=== PATIENT | male | born 1940 | race African-American/Black ===

== ENCOUNTER 2019-01-09 12:12 | Observation (INO) | payer OTHER ==
[2019-01-09 12:55] VITALS: BMI 22.4
--- NOTE | 2019-01-09 13:11 | PDOC ---
History of Present Illness - General Chief Complaint: Syncope/Near Syncope Stated Complaint: NEAR SYNCOPE Time Seen by Provider: 01/09/19 13:10 History Source: Patient Exam Limitations: No Limitations - History of Present Illness Initial Comments: 78 yo M w a pmh of IDDM, HTN, HCL, NSTEMI presents to the ER after a syncopal/ near-syncopal episode earlier today while he was driving to the supermarket. The patient states that he woke up this morning and was feeling fine but then he was driving to the supermarket and felt extremely lightheaded like he was going to pass out. He reports that before he felt lightheaded he experienced mild blurry vision and some shortness of breath. He also felt like his heart was racing but denies palpitations, nausea, vomiting, diaphoresis, recent fevers , chills, or chest pain. He also denies having any head or neck pain. PCP: Anusha Bosch Statistician Theoretical: Dr. Pro at [facility] PSH: None reported Social Hx: recreational alcohol usage. Denies current smoking or other substance usage. Allergies: NKA, NKDA Past History - Past Medical History Allergies/Adverse Reactions: Allergies Allergy/AdvReac Type Severity Reaction Status Date / Time No Known Allergies Allergy Verified 01/09/19 12:50 COPD: No Diabetes: Yes HTN: Yes - Immunization History Immunization Up to Date: Yes - Suicide/Smoking/Psychosocial Hx Smoking History: Never smoked Hx Alcohol Use: No Drug/Substance Use Hx: No Review of Systems - Review of Systems Able to Perform ROS?: Yes Constitutional: Yes: Malaise, Weakness. No: Chills, Diaphoresis, Fever HEENTM: Yes: Blurred Vision, Recent change in vision Respiratory: Yes: Shortness of Breath Cardiac (ROS): Yes: Syncope. No: Chest Pain, Palpitations ABD/GI: No: Constipated, Diarrhea, Nausea, Vomiting : No: Burning, Dysuria, Discharge Musculoskeletal: No: Back Pain, Joint Pain Integumentary: No: Bruising, Change in Color, Dryness Neurological: Yes: Weakness, Dizziness. No: Headache, Numbness, Paresthesia Psychiatric: No: Anxiety, Depression Endocrine: No: Excessive Sweating, Flushing Hematologic/Lymphatic: No: Anemia, Blood Clots *Physical Exam - Vital Signs Last Vital Signs Temp Pulse Resp BP Pulse Ox 97.9 F 64 18 134/72 100 01/09/19 12:30 01/09/19 12:30 01/09/19 12:30 01/09/19 12:30 01/09/19 12:30 - Physical Exam General Appearance: Yes: Nourished, Appropriately Dressed. No: Apparent Distress HEENT: positive: EOMI, LEIGHA, Normal ENT Inspection, Normal Voice, Symmetrical Neck: positive: Supple Respiratory/Chest: positive: Lungs Clear, Normal Breath Sounds. negative: Respiratory Distress, Crackles, Rales, Rhonchi, Stridor, Wheezing Cardiovascular: positive: Regular Rhythm, Regular Rate, S1, S2 Vascular Pulses: Dorsalis-Pedis (R): 2+, Doralis-Pedis (L): 2+ Gastrointestinal/Abdominal: positive: Flat, Soft. negative: Tender Rectal Exam: positive: deferred Lymphatic: negative: Adenopathy Musculoskeletal: positive: Normal Inspection. negative: CVA Tenderness Extremity: positive: Normal Capillary Refill, Normal Inspection, Normal Range of Motion Integumentary: positive: Normal Color, Dry, Warm Neurologic: positive: digital media planner II-XII NML intact, Fully Oriented, Alert, Normal Mood/ Affect, Normal Response, Motor Strength 5/5 ED Treatment Course - LABORATORY CBC & Chemistry Diagram: 01/09/19 13:37 01/09/19 13:37 - RADIOLOGY Radiograph Interpretation: CXR: Chest: History of TIA and CVA. 2 views of the chest have been submitted. There are no prior studies for comparison. Imaging reveals clear well aerated lungs, sharp angles, normal mediastinum and intact soft tissues. There are degenerative changes with some wedging. An acute process is not seen. Impression : No acute chest pathology. Head CT: History of rule out stroke CT scan of the brain without intravenous contrast. There is mild volume loss and ventricular dilatation. No mass lesion, acute infarct or intracranial hemorrhage are identified. There is no shift of the midline structures Visualized paranasal sinuses and mastoid air cells are well aerated. Calcification of the cavernous carotid arteries are present. The calvarium is intact IMPRESSION: Mild volume loss and ventricular dilatation without evidence of acute intracranial pathology. Correlate clinically for further evaluation and follow-up. Medical Decision Making - Medical Decision Making 78 yo M w a pmh of IDDM, HTN, HCL, NSTEMI presents to the ER after a syncopal/ near-syncopal episode earlier today while he was driving to the [employer]. The patient states that he woke up this morning and was feeling fine but then he was driving to the [employer] and felt extremely lightheaded like he was going to pass out. He reports that before he felt lightheaded he experienced mild blurry vision and some shortness of breath. He also felt like his heart was racing but denies palpitations, nausea, vomiting, diaphoresis, recent fevers , chills, or chest pain. He also denies having any head or neck pain. VS: WNL DDx IBNLT: ACS/DE, arrhythmia, syncope/near-syncope, electrolyte/metabolic disturbance, pneumothorax, PNA, CVA/TIA, brain bleed. Plan: Labs, Urine, EKG, CXR, Head CT, Likely admit to tele Obs for syncope EKG shows occasional PVC's it is possible the patient experienced a transient arrhythmia CXR and Head CT unremarkable Labs show an elevated BUN suggestive of possible dehydration - Will give patient a 2nd liter of fluid and then admit to Tele obs for syncopal observation and cardio workup - Patient microblogged for admission to hospitalist - Patient accepted for admission. *DC/Admit/Observation/Transfer Diagnosis at time of Disposition: Syncope, Light-headed feeling, Blurry vision - Discharge Dispostion Condition at time of disposition: Stable Decision to Admit order: Yes - Referrals - Patient Instructions - Post Discharge Activity
[2019-01-09] MEDS ORDERED: SODIUM CHLORIDE 1,000 ML IV STA (13:12)
[2019-01-09 14:07] LABS: EOS % 0.7 % (0-4.5); HEMATOCRIT 38.7 % (35.4-49); HEMOGLOBIN 12.8 GM/dL (11.7-16.9); LYMPH % 25.7 % (8-40); MCH 29.2 pg (25.7-33.7); MEAN CELL VOLUME 88.5 fl (80-96); MEAN PLT VOLUME 8.5 fl (7.5-11.1); MONO % 10.7 % (3.8-10.2); NEUT % 61.9 % (42.8-82.8); PLATELET COUNT 159 K/MM3 (134-434); RBC 4.37 M/mm3 (4.00-5.60); RDW 13.6 % (11.9-15.9); WHITE BLOOD COUNT 4.4 K/mm3 (4.0-10.0)
[2019-01-09 14:22] LABS: INR 1.07 (0.83-1.09); PROTHROMBIN TIME (PATIENT) 12.6 SEC (9.7-13.0)
[2019-01-09 14:35] LABS: ALBUMIN 4.2 g/dl (3.4-5.0); ALK PHOS 45 U/L (45-117); ANION GAP 7 MMOL/L (8-16); BILIRUBIN,TOTAL 0.6 mg/dL (0.2-1); BLOOD UREA NITROGEN 25 mg/dL (7-18); CALCIUM 9.3 mg/dL (8.5-10.1); CHLORIDE 101 mmol/L (98-107); CO2 24 mmol/L (21-32); CREATININE 1.3 mg/dL (0.55-1.3); GLUCOSE,RANDOM 284 mg/dL (74-106); POTASSIUM 4.8 mmol/L (3.5-5.1); SGOT/AST 25 U/L (15-37); SGPT/ALT 31 U/L (13-61); SODIUM 132 mmol/L (136-145); TOT PROT 7.9 g/dl (6.4-8.2)
[2019-01-09 14:38] LABS: MAGNESIUM 1.9 mg/dL (1.8-2.4); N-TERMINAL BNP 265.6 pg/ml (5-450)
[2019-01-09 14:40] LABS: URINE APPEARANCE Clear; URINE BILIRUBIN Negative (NEGATIVE); URINE COLOR Yellow; URINE GLUCOSE (UA) 2+ (NEGATIVE); URINE KETONE Trace (NEGATIVE); URINE LEUK ESTERASE Negative (NEGATIVE); URINE NITRITE Negative (NEGATIVE); URINE PROTEIN Negative (NEGATIVE); URINE UROBILINOGEN 0.2 mg/dL (0.2-1.0)
--- NOTE | 2019-01-09 16:04 | PDOC ---
Documentation entered by Marizol Goodson SCRIBE, acting as scribe for Shadi Sahni MD. Shadi Sahni MD: This documentation has been prepared by the Hamzah harris Sammi, SCRIBE, under my direction and personally reviewed by me in its entirety. I confirm that the documentation accurately reflects all work, treatment, procedures, and medical decision making performed by me. Attending Attestation - Resident Resident Name: Mauricio Buchanan - ED Attending Attestation I have performed the following: I have examined & evaluated the patient, The case was reviewed & discussed with the resident, I agree w/resident's findings & plan - HPI HPI: 01/09/19 15:33 78-year-old male with history of hypertension, high cholesterol, and some dependent diabetes, and NSTEMI presents with near syncopal episode while driving. No chest pain. - Physicial Exam PE: 01/09/19 15:34 Vital signs normal here, asymptomatic Heart is regular with occasional premature beats consistent with PVC on monitor Lungs clear Neurologically nonfocal - Medical Decision Making 01/09/19 15:34 78-year-old male with multiple ACS risk factors including CAD/and STEMI resents with near syncopal episode, PVCs on monitor and on EKG, most concerning for ischemic episode plus or minus arrhythmia. Labs, monitoring EKG, chest x-ray, CT head Telemetry observation Heart Score/ECG Review #1 ECG reviewed & interpreted by me at: 13:39 General ECG Interpretation: Sinus Rhythm (with PVCs noted), Normal Rate (63), Normal Intervals (qtc 421), No acute ischemic changes Compared to previous ECG there are: Previous ECG unavail
[2019-01-09] MEDS ORDERED: SODIUM CHLORIDE 0.9% 500 ML INFUS.BAG IV ONE (16:49)
--- NOTE | 2019-01-09 17:20 | HP ---
CHIEF COMPLAINT: "i almost fainted" PCP: Anusha Bosch Welfare Adviser: Dr. Pro at [facility] HISTORY OF PRESENT ILLNESS: This is a 78 yo M with PMH of IDDM, HTN, HLD, NSTEMI, CHF, who presents s/p near -syncopal episode earlier today. Patient was well this morning until he suddenly became very lightheaded with mildly blurry vision, palpitations and slight sob. Episode lasted about 20 min and symptoms subsided spontaneously by the time he arrived to ED. He currently feels well at baseline. this has not happened before. He reports decreased h20 intake over the past few days. he denies position change during the episode, cp, n/v, diaphoresis or flushing. He denies f/c, h/a, tinnitus, focal weakness or numbness. In ed labs were consistent with possible mild dehydration, head ct and cxr were unremarkable for acute pathology and EKG was unremarkable for acs. last tte was 3-4 yrs ago with reduced EF and last a1c was 7.8 6w ago. patient state his bgm was 250 this morning and that he skipped a meal. ER course was notable for: (1)labs (2)cxr, head ct (3)1 L NS IV Recent Travel: denies PAST MEDICAL HISTORY: as above PAST SURGICAL HISTORY:as above Social History: Smoking:Denies Alcohol: 5-6 drinks/week Drugs: Denies Family History: htn Allergies No Known Allergies Allergy (Verified 01/09/19 12:50) HOME MEDICATIONS: REVIEW OF SYSTEMS CONSTITUTIONAL: Absent: fever, chills HEENT: Absent: rhinorrhea, nasal congestion, throat pain CARDIOVASCULAR: Absent: chest pain, irregular heart rate, peripheral edema RESPIRATORY: Absent: cough, dyspnea with exertion, orthopnea GASTROINTESTINAL: Absent: abdominal pain, abdominal distension, nausea, vomiting, diarrhea, constipation, melena, hematochezia GENITOURINARY: Absent: dysuria MUSCULOSKELETAL: Absent: back pain, neck pain SKIN: Absent: rash, itching, pallor HEMATOLOGIC/IMMUNOLOGIC: Absent: easy bleeding, easy bruising ENDOCRINE: Absent: unexplained weight gain, unexplained weight loss NEUROLOGIC: Absent: headache, focal weakness or paresthesias PSYCHIATRIC: Absent: anxiety, depression PHYSICAL EXAMINATION Vital Signs - 24 hr 01/09/19 01/09/19 12:30 16:30 Temperature 97.9 F 98.2 F Pulse Rate 64 Pulse Rate [ 57 L Left Apical] Respiratory 18 18 Rate Blood Pressure 134/72 Blood Pressure 145/68 [Left Arm] O2 Sat by Pulse 100 100 Oximetry (%) GENERAL: Awake, alert, and fully oriented, in no acute distress. HEAD: Normal with no signs of trauma. EYES: Pupils equal, round and reactive to light, extraocular movements intact, sclera anicteric, conjunctiva clear. EARS, NOSE, THROAT: Moist mucous membranes. NECK: supple without JVD LUNGS: Breath sounds equal, clear to auscultation bilaterally HEART: Regular rate and rhythm, normal S1 and S2 ABDOMEN: Soft, nontender, not distended, normoactive bowel sounds, no guarding, no rebound, no masses. MUSCULOSKELETAL: No CVA tenderness. UPPER EXTREMITIES: 2+ pulses, warm, well-perfused. No peripheral edema. LOWER EXTREMITIES: 2+ pulses, warm, well-perfused. No calf tenderness. No peripheral edema. NEUROLOGICAL: Cranial nerves II-XII intact. Normal speech. muslce strenght 5/5 in all extremities, sensation intact, 1+ patellar and bicep reflexes b/l PSYCHIATRIC: Cooperative. Good eye contact. Appropriate mood and affect. SKIN: Warm, dry Laboratory Results - last 24 hr 01/09/19 01/09/19 01/09/19 13:37 13:37 13:37 WBC 4.4 RBC 4.37 Hgb 12.8 Hct 38.7 MCV 88.5 MCH 29.2 MCHC 33.0 RDW 13.6 Plt Count 159 MPV 8.5 Absolute Neuts (auto) 2.7 Neutrophils % 61.9 Lymphocytes % 25.7 Monocytes % 10.7 H Eosinophils % 0.7 Basophils % 1.0 Nucleated RBC % 0 PT with INR 12.60 INR 1.07 PTT (Actin FS) Sodium 132 L Potassium 4.8 Chloride 101 Carbon Dioxide 24 Anion Gap 7 L BUN 25 H Creatinine 1.3 Creat Clearance w eGFR 53.67 Random Glucose 284 H Calcium 9.3 Magnesium Total Bilirubin 0.6 AST 25 ALT 31 Alkaline Phosphatase 45 Creatine Kinase 154 Creatine Kinase Index 1.2 CK-MB (CK-2) 2.0 Troponin I < 0.02 B-Natriuretic Peptide Total Protein 7.9 Albumin 4.2 Urine Color Urine Appearance Urine pH Ur Specific [place] Urine Protein Urine Glucose (UA) Urine Ketones Urine Blood Urine Nitrite Urine Bilirubin Urine Urobilinogen Ur Leukocyte Esterase Blood Type Antibody Screen 01/09/19 01/09/19 01/09/19 13:37 13:37 13:37 WBC RBC Hgb Hct MCV MCH MCHC RDW Plt Count MPV Absolute Neuts (auto) Neutrophils % Lymphocytes % Monocytes % Eosinophils % Basophils % Nucleated RBC % PT with INR INR PTT (Actin FS) 32.0 Sodium Potassium Chloride Carbon Dioxide Anion Gap BUN Creatinine Creat Clearance w eGFR Random Glucose Calcium Magnesium 1.9 Total Bilirubin AST ALT Alkaline Phosphatase Creatine Kinase Creatine Kinase Index CK-MB (CK-2) Troponin I B-Natriuretic Peptide 265.6 Total Protein Albumin Urine Color Urine Appearance Urine pH Ur Specific [place] Urine Protein Urine Glucose (UA) Urine Ketones Urine Blood Urine Nitrite Urine Bilirubin Urine Urobilinogen Ur Leukocyte Esterase Blood Type AB POSITIVE Antibody Screen Negative 01/09/19 13:40 WBC RBC Hgb Hct MCV MCH MCHC RDW Plt Count MPV Absolute Neuts (auto) Neutrophils % Lymphocytes % Monocytes % Eosinophils % Basophils % Nucleated RBC % PT with INR INR PTT (Actin FS) Sodium Potassium Chloride Carbon Dioxide Anion Gap BUN Creatinine Creat Clearance w eGFR Random Glucose Calcium Magnesium Total Bilirubin AST ALT Alkaline Phosphatase Creatine Kinase Creatine Kinase Index CK-MB (CK-2) Troponin I B-Natriuretic Peptide Total Protein Albumin Urine Color Yellow Urine Appearance Clear Urine pH 7.0 Ur Specific [place] 1.010 Urine Protein Negative Urine Glucose (UA) 2+ H Urine Ketones Trace Urine Blood Trace-intact Urine Nitrite Negative Urine Bilirubin Negative Urine Urobilinogen 0.2 Ur Leukocyte Esterase Negative Blood Type Antibody Screen ASSESSMENT/PLAN: This is a 78 yo M with PMH of IDDM, HTN, HLD, NSTEMI, CHF, who presents s/p near -syncopal episode earlier today. Near syncope; r/o arrythmia, sic sinus, carotid plaque, hyperthyroidism IDDM HTN HLD CAD CHF -cardiac monitoring for arrythmia -carotid doppler -tte -f/u tfts -iss bgm achs, levemir 8 u am Please call patients pharmacy [facility] [phone] tomorrow at 10 am to obtain med list Problem List - Problem (1) HTN (hypertension) Code(s): I10 - ESSENTIAL (PRIMARY) HYPERTENSION (2) HLD (hyperlipidemia) Code(s): E78.5 - HYPERLIPIDEMIA, UNSPECIFIED (3) Diabetes mellitus Code(s): E11.9 - TYPE 2 DIABETES MELLITUS WITHOUT COMPLICATIONS (4) Blurry vision Code(s): H53.8 - OTHER VISUAL DISTURBANCES (5) Light-headed feeling Code(s): R42 - DIZZINESS AND GIDDINESS (6) Syncope Code(s): R55 - SYNCOPE AND COLLAPSE Visit type - Emergency Visit Emergency Visit: Yes ED Registration Date: 01/09/19 Care time: The patient presented to the Emergency Department on the above date and was hospitalized for further evaluation of their emergent condition. - New Patient This patient is new to me today: Yes Date on this admission: 01/09/19 - Critical Care Critical Care patient: No
--- NOTE | 2019-01-09 18:08 | PN ---
Teaching Attending Note Name of Resident: Yady Oconnor ATTENDING PHYSICIAN STATEMENT I saw and evaluated the patient. I reviewed the resident's note and discussed the case with the resident. I agree with the resident's findings and plan as documented. SUBJECTIVE: CC: near syncope HPI: 78 y/o man with h/o IDDM, HTN, heart failure, [place] ( per notes) , who presented with an episode of light headedness while driving. while driving to [employer], her felt extremely light headed ( No vertigo), with SOB , but no palpitations or CP. he managed to reach his destination and walk to [employer] ( unsteady gait), and then EMS were called. he had an episode like that ( less severe) 12 years ago, when he was transferred to [facility] where he was diagnosed with heart failure. he workman snot know much details and does not know his mediations . He denies being on diuretics, and denies poor po intake. his sugar was > 200 this am , and he injected his 8 units of lantus. he skipped breakfast . he denies any fever , chills, SOB, CP. he reports Neg stress test 5 years ago. no previous cath. his card is in [facility]. in the ER , he was given 2 L of fluids, EKG showed PVcs, and head CT/cxray were unremarkable. OBJECTIVE: NAD , Awake , alert , and cooperative. HEENT: no facial droop. EOMI. MMM. no JVD. CV: RRR, robert in 50s, no MRG . no JVD Lungs: CTAB EXt: no edema, no erythema, no signs of fungal infection in feet Abd: soft, NT, ND, NL BS. Neuro: EOMI, no facial droop, round pupils, reactive to light . tongue and uvula at mid line Strength 5/5 in upper and lower extremities , proximally and distally. sensation to light touch nl. reflexes 2+ knee jerk b/l. 1+ biceps b/l. nl nose to finger EKG: sinus rhythm with PVCs, L axis, nl QTC CT head, cxray reviewed. ASSESSMENT AND PLAN: 78 y/o man with h/o IDDM, HTN, heart failure, [place] ( per notes) , who presented with an episode of light headedness while driving. 1- Near syncope: etiology is most likely cardiac arrhythmias ( jaclyn or tachy). neuro exam is normal, no suspicion of stroke. despite using insulin and skipping breakfast, it does not seem like hypoglycemia. vasovagal is less likely. - tele monitoring - hold off more fluids, received 2 L in ER - Non urgent Echo as out pt - CUS - repeat one more trop - f/u with his card as out pt . might need prolonged out pt cardiac monitoring , event monitor or loop recorder. 2- Reported h/o CAD , adn CHF. not clear of details. last stress was 5 yrs ago, and no cath. last echo 2 yrs ago. - will confirm his meds with pharmacy 3- Dm : cont levemis in am and SSI 4- DVT PX
[2019-01-09] MEDS ORDERED: INSULIN SLIDING SCALE (NOVOLOG) 1 VIAL SQ SCH (22:00)
[2019-01-09] MEDS ORDERED: HEPARIN NA (PORCINE) 5,000 UNITS/ML 1ML VIAL ONE (22:17)
[2019-01-09] MEDS: HEPARIN NA (PORCINE) 5,000 UNITS/ML 1ML VIAL SQ SCH (22:23)
[2019-01-10] MEDS: INSULIN SLIDING SCALE (NOVOLOG) 1 VIAL SQ SCH ×2 (06:34→12:07)
[2019-01-10 06:38] LABS: HEMATOCRIT 34.2 % (35.4-49); HEMOGLOBIN 11.5 GM/dL (11.7-16.9); MCH 29.6 pg (25.7-33.7); MCHC 33.7 g/dl (32.0-35.9); MEAN PLT VOLUME 8.6 fl (7.5-11.1); PLATELET COUNT 144 K/MM3 (134-434); RBC 3.89 M/mm3 (4.00-5.60); RDW 13.4 % (11.9-15.9); WHITE BLOOD COUNT 3.5 K/mm3 (4.0-10.0)
[2019-01-10 06:53] LABS: ANION GAP 8 MMOL/L (8-16); BLOOD UREA NITROGEN 17 mg/dL (7-18); CALCIUM 8.3 mg/dL (8.5-10.1); CHLORIDE 108 mmol/L (98-107); CO2 25 mmol/L (21-32); CREATININE 1.1 mg/dL (0.55-1.3); GLUCOSE,RANDOM 151 mg/dL (74-106); MAGNESIUM 1.9 mg/dL (1.8-2.4); PHOSPHOROUS 3.1 mg/dL (2.5-4.9); POTASSIUM 3.8 mmol/L (3.5-5.1); SODIUM 141 mmol/L (136-145)
[2019-01-10] MEDS ORDERED: HEPARIN NA (PORCINE) 5,000 UNITS/ML 1ML VIAL ONE (06:55)
[2019-01-10] MEDS ORDERED: INSULIN (LEVEMIR) 100 UNITS/ML UNITS SQ ONE (06:56)
[2019-01-10] MEDS: HEPARIN NA (PORCINE) 5,000 UNITS/ML 1ML VIAL SQ SCH ×2 (07:00→14:52)
[2019-01-10] MEDS ORDERED: INSULIN (LEVEMIR) 100 UNITS/ML UNITS SQ SCH (07:00)
--- NOTE | 2019-01-10 09:20 | EKG ---
Test Reason : Blood Pressure : / mmHG Vent. Rate : 063 BPM Atrial Rate : 063 BPM P-R Int : 204 ms QRS Dur : 096 ms QT Int : 412 ms P-R-T Axes : 068 -09 023 degrees QTc Int : 421 ms SINUS RHYTHM WITH OCCASIONAL PREMATURE VENTRICULAR COMPLEXES POSSIBLE LEFT ATRIAL ENLARGEMENT LEFT VENTRICULAR HYPERTROPHY ABNORMAL ECG NO PREVIOUS ECGS AVAILABLE Confirmed by SAE CASTANEDA MD ([id number]) on 01/10/2019 9:19:38 AM Referred By: Confirmed By:SAE CASTANEDA MD
[2019-01-10] MEDS ORDERED: ASPIRIN 81 MG CHEWABLE TABLETS ONE (09:35)
[2019-01-10 09:58] VITALS: BP 118/67; PULSE 60; TEMP 98.4
[2019-01-10] MEDS ORDERED: ASPIRIN 81 MG CHEWABLE TABLETS PO SCH (10:00)
[2019-01-10] MEDS ORDERED: INSULIN (NOVOLOG) ASPART 100 UNITS/ML 10ML VIAL ONE (11:59)
--- NOTE | 2019-01-10 14:34 | DS ---
Physical Examination Vital Signs: Vital Signs Temperature 98.4 F 01/10/19 09:58 Pulse Rate 60 01/10/19 09:58 Respiratory Rate 18 01/10/19 09:58 Blood Pressure 118/67 01/10/19 09:58 O2 Sat by Pulse Oximetry (%) 100 01/10/19 09:58 Findings/Remarks: denies any events over night . No ever or hcills. no palpitations, dizziness or any CP PE: NAD , Awake , alert , and cooperative. CV: RRR, robert in 60, no MRG . no JVD Lungs: CTAB EXt: no edema, no erythema Labs: CBC, BMP 01/10/19 05:20 01/10/19 05:20 Discharge Summary Reason For Visit: LIGHTHEADEDNESS,BLURRING OF VISUAL IMAGE, Current Active Problems Light-headed feeling (Acute) Diabetes mellitus (Chronic) HLD (hyperlipidemia) (Chronic) HTN (hypertension) (Chronic) Hospital Course: 78 y/o man with h/o IDDM, HTN, heart failure, [place] ( per notes) , who presented with an episode of light headedness while driving. on admission he had a normal neuro exam , with labs indicating possible mild volume depletion . CT of head and cxray were unremarkable. EKG did not show acute ischemic changes.but PVcs the etiology of his presentation was felt to be due arrhythmias. he was noted to have PVCs and also with HR in 50s. he was monitored on tele and no events were seen when monitor was reviwed this am . he was dc home as he had a to go to . he was referred to his display specialist for furhter management as he will need a prolonged cardiac monitoring ,and repeat echo. the only change in his medication was decreasing the dose of his metoprolol to 100 mg to 100 mg pending f/u with his card. he was advised not to drive until he is cleared by card . he did not have contact info for his display specialist dispo dc home in good condition f/u PCP and card. Condition: Stable - Instructions Diet, Activity, Other Instructions: - you had light headedness and near syncope. this could have been due to arrhythmias. - you need to see your display specialist Dr. Lee within few days to arrange for echocardiogram and a prolonged cardiac monitoring ( holter, vs. event monitor Vs. Loop recorder) - do not drive until cleared by your display specialist. - report any fever , chills, chest pain, shortness or breath, aplpitations, or dizziness to your doctor . - Until you see your display specialist please take half a tablet of your metoprolol( toprol ) . so you will be taking half a tablet of the 200 mg ( which means 100 mg daily ) . Your heart rate was on lower side . - This is the only change made to your medications - drink plenty of fluids , and the use of water pill will be evaluated by DR. Lee ( you were dry on admission ) Disposition: HOME - Home Medications Comprehensive Discharge Medication List: Ambulatory Orders Amlodipine Besylate [Norvasc -] 10 mg PO DAILY #0 tab 01/10/19 Aspirin [Aspirin EC] 81 mg PO DAILY #30 tablet. 01/10/19 Brimonidine Tartrate [Alphagan P 0.1% -] 1 drop OU BID #0 drop 01/10/19 Insulin Glargine,Hum.rec.anlog [Basaglar Kwikpen U-100] 8 unit SQ AM #0 unit 01/24 Latanoprost 0.005% Eye Drops [Xalatan 0.005% Eye Drops -] 1 drop OU HS #0 ml 01/24 Lisinopril [Prinivil -] 40 mg PO DAILY #0 tab 01/10/19 Metformin HCl [Glucophage] 500 mg PO BID 01/10/19 Metoprolol Succinate [Toprol Xl] 100 mg PO DAILY #0 tab 01/10/19 Pantoprazole Sodium [Protonix] 40 mg PO DAILY 01/10/19 Sitagliptin Phosphate [Januvia] 100 mg PO DAILY 01/10/19 Spironolact/Hydrochlorothiazid [Spironolactone-Hctz 25-25 Tab] 0.5 tab PO DAILY 01/10/19 This patient is new to me today: Yes Date on this admission: 01/10/19 Emergency Visit: No Critical Care patient: No - Discharge Referral Referred to [facility] Med P.C.: No
== END 2019-01-10 14:52 | disposition home or self-care (01) ==
LOC: JER 12:12 → JERBED 16:55
PROVIDERS: ADMIT Internal Medicine; ATTEND Internal Medicine
PROC: 3E0337Z Introduction of Electrolytic and Water Balance Substance into Peripheral Vein, Percutaneous Approach (ICD-10-PCS; principal; 2019-01-09)
PROC: 3E013VG Introduction of Insulin into Subcutaneous Tissue, Percutaneous Approach (ICD-10-PCS; 2019-01-09)
DX: R55 Syncope and collapse (principal); R42 Dizziness and giddiness; H53.8 Other visual disturbances; I10 Essential (primary) hypertension; E78.5 Hyperlipidemia, unspecified; E11.9 Type 2 diabetes mellitus without complications; I25.2 Old myocardial infarction
CPT/HCPCS: 36415; 70450-TC; 71046-TC-FY; 80048; 80053; 81003; 82550; 82553; 82962; 83735; 83880; 84100; 84439; 84443; 84484; 85025; 85027; 85610; 85730; 86850; 86900; 86901; 87086; 93005; 93010; 93880-TC; 96365; 96372; 99285-25; G0378; J1644; J7030